=== PATIENT | female | born 1965 | race Caucasian/White ===

== ENCOUNTER 2024-07-04 17:37 | Emergency (ER) | payer OTHER ==
[2024-07-04 17:46] VITALS: BP 139/99; PULSE 72; RESP 18; TEMP 98.8; BMI 24.7
[2024-07-04] MEDS ORDERED: AZITHROMYCIN 500 MG TABLET ONE (18:18)
[2024-07-04] MEDS: AZITHROMYCIN 500 MG TABLET PO ONE (18:18)
== END 2024-07-04 18:32 | disposition home or self-care (01) ==
LOC: FER 17:37
DX: J40 Bronchitis, not specified as acute or chronic (principal); R05.9 Cough, unspecified; R09.81 Nasal congestion; B34.9 Viral infection, unspecified; Z20.822 Contact with and (suspected) exposure to COVID-19
CPT/HCPCS: 0241U-QW; 71046-TC-FY; 99284-25